=== PATIENT | male | born 1955 | race Caucasian/White ===

== ENCOUNTER → 2017-11-22 | Outpatient (CLI) | payer MEDICARE, OTHER ==
--- NOTE | 2017-11-22 15:51 | US ---
EXAMINATION TYPE: US kidneys/renal and bladder DATE OF EXAM: 11/22/2017 COMPARISON: NONE CLINICAL HISTORY: R94.4 Abnormal renal function testing. Recent abnormal renal labs EXAM MEASUREMENTS: Right Kidney: 9.8 x 5.5 x 4.7 cm Left Kidney: 9.5 x 5.3 x 4.4 cm Pt very gassy Right Kidney: Appeared wnl, upper and lower poles partially gassed out Left Kidney: Appeared wnl, lower pole partially gassed out Bladder: wnl Bilateral Jets seen: Yes There is no evidence for hydronephrosis at this point in time. No nephrolithiasis is seen. No tim s are identified on images saved. The urinary bladder is anechoic. Bilateral ureteral jets are seen . IMPRESSION: No hydronephrosis is evident bilaterally.
== END ==
LOC: RADUSWWP 15:21
PROVIDERS: ATTEND Internal Medicine
DX: R94.4 Abnormal results of kidney function studies (principal)
CPT/HCPCS: 76770

== ENCOUNTER → 2018-03-07 | Outpatient (CLI) | payer MEDICARE, OTHER ==
[2018-03-07 10:32] LABS: Basophils % (A) 0 %; Eosinophils # (A) 0.1 k/uL (0-0.7); Eosinophils % (A) 2 %; HCT 41.4 % (39.0-53.0); HGB 13.6 gm/dL (13.0-17.5); Lymphocytes # (A) 1.4 k/uL (1.0-4.8); Lymphocytes % (A) 19 %; MCH 32.4 pg (25.0-35.0); MCHC 32.9 g/dL (31.0-37.0); MCV 98.5 fL (80.0-100.0); Mean Platelet Volume 9.8; Monocytes # (A) 0.4 k/uL (0-1.0); Monocytes % (A) 5 %; Neutrophils # (A) 5.6 k/uL (1.3-7.7); Neutrophils % (A) 72 %; Platelet Count 208 k/uL (150-450); RDW 13.3 % (11.5-15.5); WBC 7.8 k/uL (3.8-10.6)
[2018-03-07 16:27] LABS: Iron Saturation 32.3 (15.00-50.00)
[2018-03-07 16:35] LABS: Vitamin D 25 Hydroxy 72.8 ng/mL (30.0-100.0)
[2018-03-07 16:56] LABS: Albumin 4.3 g/dL (3.80-4.90); Albumin/Globulin Ratio 2.39 (1.20-2.10); Anion Gap 8.5 mmol/L (4.00-12.00); Calcium 9.6 mg/dL (8.7-10.3); Carbon Dioxide 25.5 mmol/L (21.6-31.8); Globulin 1.8 g/dL (2.1-3.7); LDL Cholesterol,Calculated 62.2 mg/dL (0.0-131.0); Magnesium 1.9 mg/dL (1.5-2.4); Phosphorus 3.3 mg/dL (2.4-5.1); Potassium 5.6 mmol/L (3.5-5.5); Total Bilirubin 0.6 mg/dL (0.3-1.2); Total Protein 6.1 g/dL (6.2-8.2); Uric Acid 5.6 mg/dL (3.7-8.7); VLDL Calculation 17.8 mg/dL (5.00-40.00)
[2018-03-07 17:20] LABS: Parathyroid Hormone Intact 26.2 pg/mL (14.0-72.0)
== END ==
LOC: LABWHC1 08:46
PROVIDERS: ATTEND Internal Medicine
DX: N18.3 Chronic kidney disease, stage 3 (moderate) (principal); D63.1 Anemia in chronic kidney disease; N39.0 Urinary tract infection, site not specified; N25.81 Secondary hyperparathyroidism of renal origin; E55.9 Vitamin D deficiency, unspecified; M10.9 Gout, unspecified; E78.2 Mixed hyperlipidemia; I12.9 Hypertensive chronic kidney disease with stage 1 through stage 4 chronic kidney disease, or unspecified chronic kidney disease; E11.65 Type 2 diabetes mellitus with hyperglycemia; Z79.4 Long term (current) use of insulin
CPT/HCPCS: 36415; 80053; 80061; 82043; 82306; 82570; 82728; 83540; 83550; 83735; 83970; 84100; 84443; 84550; 85025

== ENCOUNTER → 2019-09-20 | Outpatient (CLI) | payer MEDICARE, OTHER ==
[2019-09-20 20:16] LABS: T4, Free (Free Thyroxine) 1.1 ng/dL (0.80-1.80)
== END | disposition home or self-care (01) ==
LOC: LABWHC1 12:51
PROVIDERS: ATTEND Internal Medicine Endocrinology, Diabetes & Metabolism
DX: E05.90 Thyrotoxicosis, unspecified without thyrotoxic crisis or storm (principal)
CPT/HCPCS: 36415; 84439; 84443; 84445; 84480

== ENCOUNTER → 2019-11-22 | Outpatient (CLI) | payer MEDICARE, OTHER ==
--- NOTE | 2019-11-23 10:27 | NM ---
EXAMINATION TYPE: NM thyroid image w uptake DATE OF EXAM: 11/23/2019 COMPARISON: NONE HISTORY: 64-year-old male subclinical hyperthyroidism, E05.90 TECHNIQUE: Thyroid iodine uptake is calculated and images performed after the oral administration of 309 uCi 1-123 Capsule. FINDINGS: There is normal distribution of activity throughout the gland. No discrete hot or cold nodules seen. The 4 hour iodine uptake is calculated at 4.4% (normal range 8-14%). The 24-hour iodine uptake is calculated at 12.9% (normal range 15-35%). IMPRESSION: 1. No specific abnormality and thyroid scan portion. 2. Decreased 4 and 24 hour iodine uptake. Further clinical correlation given patient's reported hyper thyroidism for etiologies such as subacute thyroiditis.
== END | disposition home or self-care (01) ==
LOC: RADNMMAIN 08:32
PROVIDERS: ATTEND Internal Medicine Endocrinology, Diabetes & Metabolism
DX: E05.90 Thyrotoxicosis, unspecified without thyrotoxic crisis or storm (principal)
CPT/HCPCS: 78014; A9516